=== PATIENT | male | born 2000 | race Two or more races ===

== ENCOUNTER 2025-10-28 01:30 | Emergency (ER) | payer BC, SELFPAY ==
[2025-10-28 01:37] VITALS: BP 155/91; PULSE 76; RESP 18; TEMP 36.8; O2SAT 97; BMI 30.8
--- NOTE | 2025-10-28 01:56 | EDNOTE_ITS ---
ED Dental RME/HPI General Chief complaint: Dental/Oral/Throat Stated complaint: LEFT CHEEK PAIN Time Seen by Provider: 10/28/25 01:46 Arrival date/time: 10/28/25 01:30 25M with no significant PMH presents to ED with 1 month of L dental pain. Patient went to dentist who prescribed amoxicillin, which helped, but pain is now back. Limitations: no limitations Related Data Previous Rx's ?Medication ?Instructions ?Recorded amoxicillin 875 mg-potassium 1 tab PO BID 7 days #14 t abs 10/28/25 clavulanate 125 mg tablet Allergies Allergy/AdvReac Type Severity Reaction Status Date / Time No Known Drug Allergies Allergy Unknown Verified 10/28/25 01:31 GRAPE SODA AdvReac Unknown Uncoded 10/28/25 01:31 Review of Systems Review of Systems Systems Reviewed: All systems reviewed, normal except as documented ENT Ears, Nose, Mouth, and Throat: Reports as per HPI and Reports dental pain Past Medical History Social History SMOKING STATUS: Never smoker ED Exam General Limitations: Present no limitations General appearance: Present alert and in no apparent distress Head Head exam: Present atraumatic ENT ENT exam: Present mucous membranes moist Expanded ENT Exam Teeth exam: Present dental tenderness # and gingival swelling Neck Neck exam: Present normal inspection, full ROM and trachea midline Chest Chest inspection: Present normal inspection and symmetric chest wall rise Neurological Exam Neurological exam: Present alert and oriented X3 Psychiatric Psychiatric exam: Present normal affect and normal mood Skin Skin exam: Present warm, dry, intact and normal color Course Quality Measures none Orders Category Date Time Status Amoxicillin/Pot Clav 875 [Augmentin 875] Med 10/28/25 01:51 Once 1 tab PO X1 ONE HYDROcodone*/APAP 5/325 [[place] 5/325] Med 10/28/25 01:51 Once 1 tab PO X1 ONE Vital Signs Vital signs: Vital Signs Temperature 98.2 F 10/28/25 01:37 Pulse Rate 76 10/28/25 01:37 Respiratory Rate 18 10/28/25 01:37 Blood Pressure 155/91 H 10/28/25 01:37 Pulse Oximetry (%) 97 10/28/25 01:37 Oxygen Delivery Method Room Air 10/28/25 01:37 O2 at 97% on RA and WNLs Dental / Oral MDM Narrative MDM Narrative:: 25M with no significant PMH presents to ED with 1 month of L dental pain. Patient went to dentist who prescribed amoxicillin, which helped, but pain is now back. Physical exam reveal dental tenderness and some gingival swelling. Patient is afebrile, calm, and alert. Will broaden to Augmentin. Patient data External records reviewed:: [facility] previous records Clinical information provided by:: patient Social determinants that could affect healthcare access:: none Patient has the following chronic illnesses:: none How is presenting disease/condition affected by chronic disease/condition?: no chronic disease Evaluation data The following diagnostics were reviewed and interpreted by me:: other (specify) (none) Lab and/or radiology exams considered but not ordered:: not ordered Interpretation Summary: n/a Medications / Prescriptions Medications or Prescriptions considered but not ordered:: ordered Medication administrations:: Medication Administration History Hydrocodone Bitart/Acetaminophen (Hydrocodone/Apap 5/325 Tablet) 1 tab PO X1 ONE Stop: 10/28/25 01:52 Amoxicillin/Clavulanate Potassium (Amoxicillin/Pot Clav 875 Tablet) 1 tab PO X1 ONE Stop: 10/28/25 01:52 above Consultations Consultation(s) initiated? (list below): No Diagnosis Dental Differential Diagnosis: gingival abscess, dental caries, toothache, dental abscess, fracture of tooth and aphthous ulcer Most likely diagnosis given after review of the tests above:: dental abscess Admission Indicated Admission indicated?: not indicated Admission Request Was there a request for admission?: No Disposition Plan Disposition Plan: Discharge Discharge Attestation Discharge Attestation: The patient and all family members were given an opportunity to ask questions and understood the discharge instructions. Discharge instructions specifically effects, indications for sooner follow up or return to the emergency department, and the expected course of current diagnosis. Patient condition: Stable Discharge Plan Plan Patient Disposition: HOME (Self Care) Discharge Disposition comment: Stable Prescriptions/Referrals Prescriptions/Med Rec: New amoxicillin-pot clavulanate 875-125 mg tablet 1 tab PO BID 7 Days Qty: 14 0RF Problem List Clinical Impression: Dental abscess Patient/Caregiver Discharge Instructions Education Materials: ED Dental Abscess Additional Instructions: Please follow-up with PCP within 24-48 hours and return immediately if symptoms worsen. Ibuprofen/Tylenol can be used simultaneously for greater fever/pain control. Print Language: [place]an Stand Alone Forms: Patient Portal Info Letter ULISES/AMARI Supervising Physician TAMMY Supervising Physician: Dr. Mackay
[2025-10-28] MEDS: AMOXICILLIN/POT CLAV 875 TABLET 1 TAB PO (02:02)
[2025-10-28] MEDS: HYDROcodone/APAP 5/325 TABLET 1 TAB PO (02:02)
== END 2025-10-28 02:10 | disposition home or self-care (01) ==
LOC: SERX 06:43
PROVIDERS: Emergency Provider Emergency Medicine
DX: K04.7 Periapical abscess without sinus (principal)
CPT/HCPCS: 99281; A9270

== ENCOUNTER 2025-10-29 11:40 | Emergency (ER) | payer BC, SELFPAY ==
[2025-10-29 11:40] VITALS: BMI 30.8
[2025-10-29 12:53] VITALS: BP 164/92; PULSE 79; RESP 18; TEMP 36.9; O2SAT 98; BMI 30.8
--- NOTE | 2025-10-29 12:59 | PD.EDDENTL ---
ED Dental RME/HPI General Chief complaint: Dental/Oral/Throat Stated complaint: L TOOTH ACHE X1 MONTH Time Seen by Provider: 10/29/25 12:18 Arrival date/time: 10/29/25 11:40 25-year-old male patient came in for evaluation regarding left upper premolar dental pain. Patient was recently seen here few days ago for infected dental caries. Was sent home on [place] and Augmentin. This morning pain is getting worse. Described as dull ache, severity moderate. Denies any fever denies any difficulties swallowing. Patient was seen by his dentist several times for the last 2 weeks. Related Data Previous Rx's ?Medication ?Instructions ?Recorded amoxicillin 875 mg-potassium 1 tab PO BID 7 days #14 tabs 10/28/25 clavulanate 125 mg tablet ketorolac 10 mg tablet 10 mg PO Q8H PRN pain 5 days #20 10/29/25 tabs Allergies Allergy/AdvReac Type Severity Reaction Status Date / Time No Known Drug Allergies Allergy Unknown Verified 10/29/25 11:43 GRAPE SODA AdvReac Unknown Uncoded 10/29/25 11:43 Review of Systems Review of Systems Narrative Review of Systems: Review of system reviewed and within normal limits except mentioned in HPI ED Exam Narrative Physical exam: VITAL SIGNS: Reviewed. GENERAL APPEARANCE: Alert and interactive, follows commands, no acute distress, HEAD AND FACE: Non-traumatic. ENT: PERRL, pink conjunctivitis, eyelid no trauma, Mucous membrane moist. Dental cavity noted on the left upper premolar. With tenderness NECK: Supple, nontender, no nuchal rigidity. RECTAL: Deferred. GENITAL: Deferred. NEUROLOGICAL: Gross motor function intact sensory function intact, Appropriate for age. MUSCULOSKELETAL: low back nontender, full range of motion. EXTREMITIES: Nontender, full range of motion. SKIN: Color pink, dry, no rash, no lacerations, no abrasions, no contusions. LYMPHATICS: Deferred. Course Quality Measures none Orders Category Date Time Status Ketorolac Inj [Toradol Inj] Med 10/29/25 12:58 Once 30 mg IM X1 ONE Vital Signs Vital signs: Vital Signs Temperature 98.4 F 10/29/25 12:53 Pulse Rate 79 10/29/25 12:53 Respiratory Rate 18 10/29/25 12:53 Blood Pressure 164/92 H 10/29/25 12:53 Pulse Oximetry (%) 98 10/29/25 12:53 Oxygen Delivery Method Room Air 10/29/25 12:53 Dental / Oral MDM Narrative MDM Narrative:: 25-year-old male patient came in for evaluation regarding left upper premolar dental pain. Patient was recently seen here few days ago for infected dental caries. Was sent home on [place] and Augmentin. This morning pain is getting worse. Described as dull ache, severity moderate. Denies any fever denies any difficulties swallowing. Patient was seen by his dentist several times for the last 2 weeks. Patient received Toradol IM patient was advised to continue taking Augmentin, and see a dentist again. Patient data External records reviewed:: None Clinical information provided by:: patient Social determinants that could affect healthcare access:: none Patient has the following chronic illnesses:: None How is presenting disease/condition affected by chronic disease/condition?: uneffected by Evaluation data The following diagnostics were reviewed and interpreted by me:: other (specify) (None) Lab and/or radiology exams considered but not ordered:: None Interpretation Summary: None Medications / Prescriptions Medications or Prescriptions considered but not ordered:: Toradol Medication administrations:: Toradol Consultations Consultation(s) initiated? (list below): No Diagnosis Dental Differential Diagnosis: dental caries, toothache and dental abscess Most likely diagnosis given after review of the tests above:: Infected dental caries Admission Indicated Admission indicated?: not indicated Admission Request Was there a request for admission?: No Disposition Plan Disposition Plan: Discharge Discharge Attestation Discharge Attestation: The patient and all family members were given an opportunity to ask questions and understood the discharge instructions. Discharge instructions specifically effects, indications for sooner follow up or return to the emergency department, and the expected course of current diagnosis. Patient condition: Stable Discharge Plan Plan Patient Disposition: HOME (Self Care) Discharge Disposition comment: Stable Prescriptions/Referrals Prescriptions/Med Rec: New ketorolac 10 mg tablet 10 mg PO Q8H PRN (Reason: pain) 5 Days Qty: 20 0RF No Action amoxicillin-pot clavulanate 875-125 mg tablet 1 tab PO BID 7 Days Qty: 14 0RF Problem List Clinical Impression: Infected dental caries Patient/Caregiver Discharge Instructions Discharge Activity: activity as tolerated Education Materials: ED Dental Cavity Additional Instructions: Thank you for the opportunity for serving you today. You are stable for discharged . You are advised to: Follow-up with your dentist in 1 to 2 days Return to ED for worsening of symptoms Increase oral fluids Take medication as prescribed Print Language: Armenian Stand Alone Forms: [employer] Award Info., Patient Portal Info Letter ULISES/AMARI Supervising Physician ULISES/AMARI Supervising Physician: MD Hernandez
[2025-10-29 14:22] VITALS: BP 137/84; PULSE 65; RESP 19; TEMP 36.7; O2SAT 97
[2025-10-29] MEDS: KETOROLAC INJ 30 MG/ML VIAL IM (14:22)
== END 2025-10-29 14:27 | disposition home or self-care (01) ==
PROVIDERS: Emergency Provider Emergency Medicine
DX: K02.9 Dental caries, unspecified (principal); K04.7 Periapical abscess without sinus
CPT/HCPCS: 96372; 99282; J1885